=== PATIENT | male | born 1940 | race Caucasian/White ===

== ENCOUNTER 2018-01-28 08:09 | Inpatient (IN) | payer OTHER ==
[2018-01-16 10:25] VITALS: BMI 38.9
[~2018-01-28 08:09] MED LIST: CEFAZOLIN 2 GM in DEXTROSE 5%-WATER - 50 ML IVPB ONE; CELECOXIB 200 MG CAPSULE PO ONE; TRANEXAMIC ACID 1000 MG/10 ML VIAL IVPUSH ONE; VANCOMYCIN 1,000 MG in DEXTROSE 5%-WATER - 250 ML IVPB ONE; oxyCODONE HCL 10 MG SUSTAINED ACTING TABLET PO ONE
[2018-01-28] MEDS ORDERED: CELECOXIB 200 MG CAPSULE ONE (09:26)
[2018-01-28] MEDS ORDERED: DEXAMETHASONE SOD PHOSPHATE/PF 10 MG/ML SDV ONE (10:08)
[2018-01-28] MEDS ORDERED: BUPIVACAINE LIPOSOME/PF (EXPAREL) 266 MG/20 ML VIAL ONE (10:09)
[2018-01-28] MEDS ORDERED: MIDAZOLAM HCL 2 MG/2 ML SINGLE DOSE VIAL ONE (10:09)
[2018-01-28] MEDS ORDERED: ceFAZolin SODIUM 1 GM VIAL ONE ×2 (11:33→14:23)
[2018-01-28] MEDS ORDERED: VANCOMYCIN 1,000 MG VIAL (RESTRICTED TO ID ONLY) ONE (11:33)
[2018-01-28] MEDS ORDERED: TRANEXAMIC ACID 1000 MG/10 ML VIAL ONE (11:40)
--- NOTE | 2018-01-28 15:22 | OP ---
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
--- NOTE | 2018-01-28 15:25 | PN ---
Progress Note (short form) - Note Progress Note: 78M s/p revision right total knee replacement POD #0. -Pain control. -DVT PPx: -Chemical: 81mg ASA PO BID x 6 weeks. -Mechanical: DAYAMI's, SCD's. -Incentive spirometry. -PT/OT/Rehab, OOB. -TTWB RLE. -Will organize right knee Umberto brace. -f/u drain output. -f/u AM labs. -Care per medical hospitalist team. -Discharge planning. -Will follow. Barrington Ohara MD (Orthopaedic Surgery).
[2018-01-28] MEDS ORDERED: MAG HYDROX/AL HYDROX/SIMETH 30 ML UNIT-DOSE CUP PO PRN (15:26)
[2018-01-28] MEDS ORDERED: ONDANSETRON 4 MG/2 ML VIAL IVPUSH PRN (15:26)
[2018-01-28] MEDS ORDERED: MAGNESIUM HYDROX 2400MG/30ML ORAL SUSPENSION 30 ML CUP PO PRN (15:26)
[2018-01-28] MEDS ORDERED: ALBUTEROL SO4 8 GM HFA INHALER IH PRN (15:28)
[2018-01-28] MEDS ORDERED: LACTATED RINGERS SOLUTION 1,000 ML IV SCH (15:30)
--- NOTE | 2018-01-28 15:44 | SURG ---
Surgery Slubber Machine Operator Note Slubber Machine Operator: Sandra Frederick PA-C Date of Service: 01/28/18 Diagnosis: failed right total knee replacement Procedure: 1-stage revision right total knee replacement I was present for the entirety of the operative procedure. For further detail, please refer to operative report. Visit type - Case Type Case Type: Scheduled - Emergency Emergency Visit: No - New patient This patient is new to me today: Yes Date on this admission: 01/28/18
[2018-01-28] MEDS ORDERED: oxyCODONE HCL 5 MG TABLET PO PRN (15:51)
[2018-01-28] MEDS: ACETAMINOPHEN 325 MG TABLET (FP) PO SCH ×2 (16:45→21:54)
[2018-01-28] MEDS: oxyCODONE HCL 5 MG TABLET PO PRN (17:57)
--- NOTE | 2018-01-28 21:24 | OP ---
DATE OF OPERATION: 01/28/2018 SURGEON: Stew Ohara MD CHIEF CLOTH FINISHING RANGE OPERATOR: Barrington Ohara MD and TORIBIO Elliott PREOPERATIVE DIAGNOSIS: Loosening right total knee arthroplasty. POSTOPERATIVE DIAGNOSIS: Loosening right total knee arthroplasty. PROCEDURE: 1. Explant removal of total knee arthroplasty. 2. Tibial tubercle osteotomy. 3. Revision right total knee arthroplasty (Jagdish rotating hinge). 4. Lateral release. ANESTHESIA: Conscious sedation with spinal anesthesia and adductor block. ANTIBIOTICS: Kefzol 2 g and 1 g vancomycin preoperative, 1 g Kefzol at the end of the procedure. TOURNIQUET TIME: 2-1/2 hours. DESCRIPTION OF PROCEDURE: The patient was correctly identified and brought to the operating room. The right lower extremity was prepped and draped in the routine manner with Betadine scrub solution, wiped with alcohol, and DuraPrep applied. Timeout was called. Imaging was available for intraoperative evaluation. A midline incision was made into the knee. This was along the lines of the old knee incision. This was extended proximally and distally. It was impossible to gain access to this knee without anything other than a tibial tubercle osteotomy. The proximal tibial soft tissues were dissected off the medial aspect of the tibia. A tibial tubercle osteotomy was performed measuring approximately 10 cm below the proximal end of the tibial tubercle. Once this was opened laterally, the entire knee was exposed, revealing the entire contents appropriately. The tibial component was loose. This was noted after removing of the junctional bed around the entire implant. The tibial tray was delivered without any difficulty. The femoral component required a Gigli saw to be placed from proximal to distal and then small osteotomes cut the whitlock between the bone and cement and the femoral component was also delivered without any difficulty accordingly. Multiple specimens were sent to the lab for cultures and sensitivity as well as histopathology. The histopathology reports were 1 polymorph seen per high power field. No clinical or microscopic evidence of infection. We went ahead and proceeded with the revision knee arthroplasty. The femoral component was prepared with the appropriate jig systems. This was downsized to a size C, definitely smaller than what had been inserted before. The patellar button was left alone. The intramedullary canal was reamed to size 12 and a size C with 12 mm x 45 mm stem inserted onto the femoral component. The stem, after preparation of bone, it was necessary to maintain the joint line, this being achieved with 5 mm distal augments x2, one placed medially and one placed laterally. The tibia itself measured size 3. The concern was the fibula. The original tibia had sunk well below the tip of the proximal end of the fibular head. This had been resected. This resulted in loss of the lateral collateral ligament, hence the need for the rotating hinge. It was impossible to see the stems on the tibia because of the tight canal. A routine tibial tray with rotating hinge was inserted and a 17 mm polyethylene liner was inserted appropriately. A full debridement of the knee was performed, that is all soft tissue appropriately. Once the trialing had been completed and excellent range of movement achieved on the table and complete stability noted, the definitive implants were seated with 1 cementing of both the femur and tibia in one stage. All extraneous cement was removed. The wounds were thoroughly lavaged appropriately. A size 17 polyethylene tray applied and the locking pin inserted. Range of movement on the table was 0 to at least 110 degrees. Prior to the surgery, the range of movement 5 to 70 degrees. The tibial tubercle was then repositioned and the tibial fixation was with interfragmentary screws and a lag effect with 3 screws seated from the tibial tubercle into the bone bed appropriately. A lateral release was necessary in order to prevent tilting of the patella. Closure of the quadriceps tendon and parapatellar tissues with 1 Vicryl, subcutaneous 1-0 and 2-0 Vicryl, skin beth. Drainage: One-eighth inch Hemovac x1. Knee immobilizer applied. MD ANA Carpenter/[id number]
[2018-01-28] MEDS: LATANOPROST 0.005% OPHTH SOLN 2.5ML BOTTLE OU SCH (21:53)
[2018-01-28] MEDS: CARVEDILOL 12.5 MG TABLET (FP) PO SCH (21:55)
[2018-01-28] MEDS: ASPIRIN COATED 81 MG TABLET.EC PO SCH (21:55)
[2018-01-28] MEDS: oxyCODONE HCL 10 MG SUSTAINED ACTING TABLET PO SCH (21:55)
[2018-01-28] MEDS: SENNOSIDES/DOCUSATE COMBO (SENNA PLUS) TABLET (UD) PO SCH (21:57)
[2018-01-28] MEDS: BUDESONIDE/FORMETEROL FUMARATE 80/4.5 mcg INHALER IH SCH ×2 (21:57→22:05)
[2018-01-28] MEDS: CEFAZOLIN 2 GM/D5W 2 GM/50 ML ML IVPB SCH (22:12)
[2018-01-29] MEDS: oxyCODONE HCL 5 MG TABLET PO PRN ×5 (02:51→21:24)
[2018-01-29] MEDS: ACETAMINOPHEN 325 MG TABLET (FP) PO SCH ×4 (05:00→21:24)
[2018-01-29] MEDS: TORSEMIDE 20 MG TABLET (FP) PO SCH ×2 (05:21→14:36)
[2018-01-29] MEDS: CEFAZOLIN 2 GM/D5W 2 GM/50 ML ML IVPB SCH (07:15)
[2018-01-29 08:14] LABS: HEMATOCRIT 39.3 % (35.4-49); MCH 30.9 pg (25.7-33.7); MEAN CELL VOLUME 93.6 fl (80-96); MEAN PLT VOLUME 10.3 fl (7.5-11.1); PLATELET COUNT 209 K/MM3 (134-434); RDW 14.3 % (11.9-15.9); WHITE BLOOD COUNT 10.9 K/mm3 (4.0-10.8)
[2018-01-29 08:18] LABS: ANION GAP 7 (8-16); BLOOD UREA NITROGEN 41 mg/dl (7-18); CALCIUM 7.9 mg/dl (8.4-10.2); CHLORIDE 102 mmol/L (98-107); CO2 27 mmol/L (22-28); CREATININE 1.2 mg/dl (0.6-1.3); GLUCOSE,RANDOM 125 mg/dl (74-106); POTASSIUM 3.5 mmol/L (3.5-5.1); SODIUM 136 mmol/L (136-145)
--- NOTE | 2018-01-29 09:09 | CONSULT ---
Consultation: REQUESTING PROVIDER: Dr Ohara CONSULT REQUEST: We have been asked to medically evaluate this patient for medical management. HISTORY OF PRESENT ILLNESS: Patient is a 78 y/o male with a past medical history of HTN, HLD, PVD (stent right superfiscial femoral artery), PUD, CAD (s/ p 2 stents), CKD, OA, gout, spinal stenosis, and congestive heart failure. Patient was admitted to the medical surgical floor after revision of right total knee replacement, Dr Ohara, spinal anesthesia, post op day 1 REVIEW OF SYSTEMS: CONSTITUTIONAL: Absent: fever, chills, diaphoresis, generalized weakness, malaise, loss of appetite, weight change HEENT: Absent: rhinorrhea, nasal congestion, throat pain, throat swelling, difficulty swallowing, mouth swelling, ear pain, eye pain, visual changes CARDIOVASCULAR: Absent: chest pain, syncope, palpitations, irregular heart rate, lightheadedness , peripheral edema RESPIRATORY: Absent: cough, shortness of breath, dyspnea with exertion, orthopnea, wheezing, stridor, hemoptysis GASTROINTESTINAL: Absent: abdominal pain, abdominal distension, nausea, vomiting, diarrhea, constipation, melena, hematochezia GENITOURINARY: Absent: dysuria, frequency, urgency, hesitancy, hematuria, flank pain, genital pain MUSCULOSKELETAL: Present: right knee pain Absent: myalgia, arthralgia, joint swelling, back pain, neck pain SKIN: Absent: rash, itching, pallor HEMATOLOGIC/IMMUNOLOGIC: Absent: easy bleeding, easy bruising, lymphadenopathy, frequent infections ENDOCRINE: Absent: unexplained weight gain, unexplained weight loss, heat intolerance, cold intolerance NEUROLOGIC: Absent: headache, focal weakness or paresthesias, dizziness, unsteady gait, seizure, mental status changes, bladder or bowel incontinence PSYCHIATRIC: Absent: anxiety, depression, suicidal or homicidal ideation, hallucinations. PHYSICAL EXAMINATION Vital Signs - 24 hr 01/28/18 01/28/18 01/28/18 09:45 09:56 15:31 Temperature 97.8 F 97.6 F Pulse Rate 58 L 66 Respiratory 18 12 Rate Blood Pressure 149/68 159/69 O2 Sat by Pulse 97 97 Oximetry (%) 01/28/18 01/28/18 01/28/18 15:35 15:40 15:45 Temperature 97.6 F Pulse Rate 59 L 61 61 Respiratory 14 16 16 Rate Blood Pressure 162/69 167/66 167/66 O2 Sat by Pulse 98 98 98 Oximetry (%) 01/28/18 01/28/18 01/28/18 16:00 16:15 16:30 Temperature 97.6 F Pulse Rate 61 61 68 Respiratory 16 16 16 Rate Blood Pressure 171/69 159/65 160/68 O2 Sat by Pulse 98 98 98 Oximetry (%) 01/28/18 01/28/18 01/28/18 16:55 18:40 19:40 Temperature 97.6 F 97.7 F 97.5 F L Pulse Rate 62 75 75 Respiratory 17 16 18 Rate Blood Pressure 162/69 145/64 151/61 O2 Sat by Pulse 97 98 Oximetry (%) 01/28/18 01/28/18 01/29/18 20:37 22:15 06:00 Temperature 97.5 F L 98.0 F Pulse Rate 76 72 Respiratory 19 19 Rate Blood Pressure 101/61 150/60 O2 Sat by Pulse 95 99 95 Oximetry (%) GENERAL: obese, Awake, alert, and fully oriented, in no acute distress. HEAD: Normal with no signs of trauma. EYES: Pupils equal, round and reactive to light, extraocular movements intact, sclera anicteric, conjunctiva clear. No lid lag. EARS, NOSE, THROAT: Ears normal, nares patent, oropharynx clear without exudates. Moist mucous membranes. NECK: Normal range of motion, supple without lymphadenopathy, JVD, or masses. LUNGS: Breath sounds equal, clear to auscultation bilaterally, diminished to bases. No wheezes, and no crackles. No accessory muscle use. HEART: Regular rate and rhythm, normal S1 and S2 without murmur, rub or gallop. ABDOMEN: Soft, nontender, not distended, normoactive bowel sounds, no guarding, no rebound, no masses. No hepatomegaly or splenomegaly. MUSCULOSKELETAL: Normal range of motion at all joints. No bony deformities or tenderness. No CVA tenderness. UPPER EXTREMITIES: 2+ pulses, warm, well-perfused. No cyanosis. No clubbing. Cap refill <2 seconds. No peripheral edema. LOWER EXTREMITIES: 2+ pulses, warm, well-perfused. No calf tenderness. No peripheral edema. RIGHT LOWER EXTREMITY: knee immobilizer in place, hemovac drain, less than 3 second capillary refill, +2 pedal pulse NEUROLOGICAL: Cranial nerves II-XII intact. Normal speech. Normal gait. PSYCHIATRIC: Cooperative. Good eye contact. Appropriate mood and affect. SKIN: Warm, dry, normal turgor, no rashes or lesions noted. Laboratory Results - last 24 hr 01/29/18 01/29/18 07:12 07:12 WBC 10.9 H RBC 4.20 Hgb 13.0 Hct 39.3 MCV 93.6 MCH 30.9 MCHC 33.0 RDW 14.3 Plt Count 209 MPV 10.3 Sodium 136 Potassium 3.5 Chloride 102 Carbon Dioxide 27 Anion Gap 7 L BUN 41 H Creatinine 1.2 Random Glucose 125 H Calcium 7.9 L Active Medications Generic Name Dose Route Start Last Admin Trade Name Freq PRN Reason Stop Dose Admin Acetaminophen 650 mg 01/28/18 16:00 01/29/18 05:00 Tylenol - PO 01/31/18 15:59 650 mg Q6H MELONY Administration Al Hydroxide/Mg Hydroxide 30 ml 01/28/18 15:26 Mylanta Oral Suspension - PO Q4H PRN DYSPEPSIA Albuterol Sulfate 2 puff 01/28/18 15:28 Ventolin Hfa Inhaler - IH Q6H PRN WHEEZING Allopurinol 200 mg 01/29/18 10:00 Zyloprim - PO DAILY MELONY Aspirin 81 mg 01/28/18 22:00 01/28/18 21:55 Ecotrin - PO 81 mg BID MELONY Administration Budesonide/Formoterol Fumarate 2 puff 01/28/18 22:00 01/28/18 22:05 Symbicort 80/4.5mcg - IH Not Given BID MELONY Carvedilol 25 mg 01/28/18 22:00 01/28/18 21:55 Coreg - PO 25 mg BID MELONY Administration Colchicine 0.6 mg 01/29/18 10:00 Colcrys - PO DAILY MELONY Doxazosin Mesylate 4 mg 01/29/18 10:00 Cardura - PO DAILY MELONY Latanoprost 1 drop 01/28/18 22:00 01/28/18 21:53 Xalatan 0.005% Eye Drops - OU 1 drop HS MELONY Administration Magnesium Hydroxide 30 ml 01/28/18 15:26 Milk Of Magnesia - PO PRN PRN CONSTIPATION Ondansetron HCl 4 mg 01/28/18 15:26 Zofran Injection IVPUSH Q6H PRN NAUSEA Oxycodone HCl 5 mg 01/28/18 15:51 Roxicodone - PO Q3H PRN PAIN LEVEL 1-5 Oxycodone HCl 10 mg 01/28/18 15:51 01/29/18 07:52 Roxicodone - PO 10 mg Q3H PRN Administration PAIN LEVEL 6-10 Oxycodone HCl 10 mg 01/28/18 22:00 01/28/18 21:55 Oxycontin - PO 01/31/18 15:52 10 mg BID MELONY Administration Pantoprazole Sodium 40 mg 01/29/18 10:00 Protonix - PO DAILY MELONY Senna/Docusate Sodium 1 tablet 01/28/18 22:00 01/28/18 21:57 Pericolace - PO 1 tablet BID MELONY Administration Torsemide 40 mg 01/29/18 06:00 01/29/18 05:21 Demadex - PO 40 mg BIDLASIX MELONY Administration ASSESSMENT/PLAN: 1) MS right total knee replacement, revision, post op day 1 - prn pain medication - toe touch weight bearing as per orthopedist to the right lower extremity - neurovascular checks q4h - monitor hgb, strict monitoring of hemovac drain 2) cardiovascular hypertension - continue coreg and cardura, b/p at goal systolic congestive heart failure aortic insufficiency - pt appears euvolemic on exam, strict monitoring of i/o - continue torsemide CAD s/p stent x2 - continue ASA PVD - hx of right superfiscial femoral artery stent, strict neurovascular assessment q4h 3) PULM COPD - no acute excerbation at this time, continue symbicort and albuterol prn RAJI - bipap ordered at night with continous spo2 4) nephrology CKD - creatine 1.2 baseline 1.0 - avoid nephrotixc agents and nsaids 5) GI GERD - protonix Dispo: We will continue to follow the patient. Thank you for this consultative opportunity. Visit type - Emergency Visit Emergency Visit: No - New Patient This patient is new to me today: Yes Date on this admission: 01/29/18 - Critical Care Critical Care patient: No
[2018-01-29] MEDS: DOXAZOSIN MESYLATE 2 MG TABLET (FP) PO SCH (09:45)
[2018-01-29] MEDS: oxyCODONE HCL 10 MG SUSTAINED ACTING TABLET PO SCH ×2 (09:46→21:24)
[2018-01-29] MEDS: CARVEDILOL 12.5 MG TABLET (FP) PO SCH ×2 (09:46→21:24)
[2018-01-29] MEDS: ASPIRIN COATED 81 MG TABLET.EC PO SCH ×2 (09:46→21:24)
[2018-01-29] MEDS: COLCHICINE 0.6 MG TABLET (FP) PO SCH (09:46)
[2018-01-29] MEDS: SENNOSIDES/DOCUSATE COMBO (SENNA PLUS) TABLET (UD) PO SCH ×2 (09:47→22:26)
[2018-01-29] MEDS: BUDESONIDE/FORMETEROL FUMARATE 80/4.5 mcg INHALER IH SCH ×2 (09:47→21:26)
[2018-01-29] MEDS: PANTOPRAZOLE 40 MG TABLET (FP) PO SCH (09:47)
[2018-01-29] MEDS: ALLOPURINOL 100 MG TABLET (FP) PO SCH (09:48)
--- NOTE | 2018-01-29 10:24 | PN ---
Progress Note (short form) - Note Progress Note: Anesthesia post op note POD#1 S/P revision right total knee replacement, under spinal and nerve block. Pat seen and examined. VSS. Comfortable. Pain well controlled. Doing PT. No apparent post anesthesia complications. Signed off.
[2018-01-29] MEDS ORDERED: ALBUTEROL SO4 0.083% IH SOL 2.5 MG/3 ML VIAL.NEB. NEB PRN (10:45)
--- NOTE | 2018-01-29 13:47 | PN ---
Progress Note (short form) - Note Progress Note: surgery POD #1 Right total knee revision. Patient seen and examined in the chair at the bedside. Patient states his pain is controlled and he is tolerating a regular diet. He denies any CP, SOB, N/V, fever or chills. Vital Signs Temp 99.2 F 01/29/18 10:00 Pulse 69 01/29/18 10:00 Resp 19 01/29/18 10:00 BP 132/47 01/29/18 10:00 Pulse Ox 97 01/29/18 10:00 Intake & Output 01/28/18 01/29/18 01/29/18 23:59 11:59 23:59 Intake Total 1700 Output Total 200 400 Balance 1500 -400 Intake: IV 1000 Oral 700 Output: Drainage 0 100 SARAH#1 100 Urine 200 300 Void 200 300 Other: Voiding Method Urinal Urinal # Unmeasured Voids Void 0 Bowel Movement No CBC, BMP 01/29/18 07:12 01/29/18 07:12 PE: A&Ox3, NAD unlabored resp on RA Right LE dressing c/d/i with no evidence of d/c, drain in good position draining well. b/l LE compartments soft and non-tender, 5/5 dorsi/plantar flexion and +1 pedal pulses. scd and teds in place Problem List - Problems (1) Failure of total knee arthroplasty Assessment/Plan: POD #1 Right TKA revision doing well. Plan: 1) continue DVT prophylaxis with ASA, teds, scds and ambulation 2) TTWB on right LE with rolling platform walker 3) OOB with assist 4) Encourage IS 5) D/c planning for rehab when appropriate. Code(s): T84.018A - BROKEN INTERNAL JOINT PROSTHESIS, OTHER SITE, INIT ENCNTR; Z96.659 - PRESENCE OF UNSPECIFIED ARTIFICIAL KNEE JOINT
[2018-01-29] MEDS: LATANOPROST 0.005% OPHTH SOLN 2.5ML BOTTLE OU SCH (22:27)
[2018-01-30] MEDS: ACETAMINOPHEN 325 MG TABLET (FP) PO SCH ×2 (04:00→09:39)
[2018-01-30] MEDS: TORSEMIDE 20 MG TABLET (FP) PO SCH ×2 (06:25→13:45)
[2018-01-30 06:45] VITALS: PULSE 73; TEMP 98.9
[2018-01-30 08:07] LABS: HEMATOCRIT 36.4 % (35.4-49); HEMOGLOBIN 12.5 GM/dl (11.7-16.9); MCHC 34.3 g/dl (32.0-35.9); MEAN CELL VOLUME 93.2 fl (80-96); MEAN PLT VOLUME 10.5 fl (7.5-11.1); PLATELET COUNT 203 K/MM3 (134-434); RDW 14.6 % (11.9-15.9); WHITE BLOOD COUNT 11.1 K/mm3 (4.0-10.8)
[2018-01-30] MEDS: oxyCODONE HCL 5 MG TABLET PO PRN ×2 (08:33→13:45)
[2018-01-30] MEDS: ASPIRIN COATED 81 MG TABLET.EC PO SCH (09:43)
[2018-01-30] MEDS: oxyCODONE HCL 10 MG SUSTAINED ACTING TABLET PO SCH (09:43)
[2018-01-30] MEDS: ALLOPURINOL 100 MG TABLET (FP) PO SCH (09:43)
[2018-01-30] MEDS: SENNOSIDES/DOCUSATE COMBO (SENNA PLUS) TABLET (UD) PO SCH (09:43)
[2018-01-30] MEDS: DOXAZOSIN MESYLATE 2 MG TABLET (FP) PO SCH (09:44)
[2018-01-30] MEDS: COLCHICINE 0.6 MG TABLET (FP) PO SCH (09:44)
[2018-01-30] MEDS: CARVEDILOL 12.5 MG TABLET (FP) PO SCH (09:44)
[2018-01-30] MEDS: PANTOPRAZOLE 40 MG TABLET (FP) PO SCH (09:44)
[2018-01-30] MEDS: BUDESONIDE/FORMETEROL FUMARATE 80/4.5 mcg INHALER IH SCH (09:44)
--- NOTE | 2018-01-30 10:26 | DS ---
Physical Exam: SUBJECTIVE: Patient seen and examined, sitting in bedside chair,reports minimal pain to the right knee, denies any paresthesia to the right lower extremity, reports pain is 4/10 upon movement of the right lower extremity, patient denies any chest pain or shortness of breath. OBJECTIVE: Patient is a 78 y/o male with a past medical history of HTN, HLD, PVD (stent right superfiscial femoral artery), PUD, CAD (s/p 2 stents), CKD, OA , gout, spinal stenosis, and congestive heart failure. Patient was admitted to the medical surgical floor after revision of right total knee replacement, Dr Ohara, spinal anesthesia. Vital Signs Period Temp Pulse Resp BP Sys/Hatfield Pulse Ox Last 24 Hr 98.4 F-99.2 F 66-79 18-20 141-171/47-77 96-100 PHYSICAL EXAM GENERAL: The patient is awake, alert, and fully oriented, in no acute distress. HEAD: Normal with no signs of trauma. EYES: PERRL, extraocular movements intact, sclera anicteric, conjunctiva clear. ENT: Ears normal, nares patent, oropharynx clear without exudates, moist mucous membranes. NECK: Trachea midline, full range of motion, supple. LUNGS: Breath sounds equal, clear to auscultation bilaterally, no wheezes, no crackles, no accessory muscle use. HEART: Regular rate and rhythm, S1, S2 without murmur, rub or gallop. ABDOMEN: Soft, nontender, nondistended, normoactive bowel sounds, no guarding, no rebound, no hepatosplenomegaly, no masses. EXTREMITIES: 2+ pulses, warm, well-perfused, no edema. RIGHT LOWER EXTREMITY: surgical site well approximated, beth intact, no drainage noted, no erythema, no induration noted, tenderness upon palpation, hemovac drain removed intact, scant sangenous drainage noted. less than 3 second capillary refill, +3 pedal pulse. scd/cedric intact NEUROLOGICAL: Cranial nerves II through XII grossly intact. Normal speech, gait not observed. PSYCH: Normal mood, normal affect. SKIN: Warm, dry, normal turgor, no rashes or lesions noted. LABS Laboratory Results - last 24 hr 01/30/18 07:25 WBC 11.1 H RBC 3.90 L Hgb 12.5 Hct 36.4 MCV 93.2 MCH 32.0 MCHC 34.3 RDW 14.6 Plt Count 203 MPV 10.5 CMP Sodium 136 mmol/L (136-145) 01/29/18 07:12 Potassium 3.5 mmol/L (3.5-5.1) 01/29/18 07:12 Chloride 102 mmol/L (98-107) 01/29/18 07:12 Carbon Dioxide 27 mmol/L (22-28) 01/29/18 07:12 Anion Gap 7 (8-16) L 01/29/18 07:12 BUN 41 mg/dl (7-18) H 01/29/18 07:12 Creatinine 1.2 mg/dl (0.6-1.3) 01/29/18 07:12 Random Glucose 125 mg/dl (74-106) H 01/29/18 07:12 Calcium 7.9 mg/dl (8.4-10.2) L 01/29/18 07:12 HOSPITAL COURSE: 1) right total knee replacement, revision, post op day 2 - pain controlled with both narcotic and non narcotic approach - toe touch weight bearing as per orthopedist to the right lower extremity - neurovascular checks q4h - hemovac drain removed on post op day 2, intact. - hgb 12.5 stable 2) cardiovascular hypertension - continued coreg and cardura, b/p at goal systolic congestive heart failure aortic insufficiency - patient remained euvolemic on exam, strict monitoring of i/o - continued torsemide CAD s/p stent x2 - continue ASA PVD - hx of right superfiscial femoral artery stent, strict neurovascular assessment q4h 3) PULM COPD - no acute excerbation at this time, continue symbicort and albuterol prn RAJI - bipap 10/5 fio2 21%, ordered at night with continuous spo2 4) CKD - creatine 1.2 baseline 1.0 - avoid nephrotixc agents and nsaids 5) GERD - protonix PLAN - discharge to SNF for short term rehab - continue asa 81mg bid for 6 weeks - TOE TOUCH WEIGHT BEARING WITH JESUS KNEE BRACE AT ALL TIMES - strict followup with Dr Ohara within 1 week Date of Admission:01/28/18 Date of Discharge: 01/30/18 Minutes to complete discharge: 45 Discharge Summary Reason For Visit: [facility] LOOSENING OF INTERNAL RIGHT KNEE Current Active Problems Failure of total knee arthroplasty (Acute) Condition: Improved - Instructions Diet, Activity, Other Instructions: resume DASH diet continue all medications as prescribed Post-op Instructions Call the office for a follow-up appointment in 1 week Aspirin 81mg daily for 6 weeks. Apply Graduated Compression Stockings (TEDs) to both lower extremities- remove daily for hygiene ONLY Apply cold packs to affected area for 15 minutes every 2 hours. TOE TOUCH WEIGHT BEARING WITH KNEE BRACE AT ALL TIMES Patient may ambulate as tolerated-encourage self care (at least every 2-3 hours while awake) with walker or cane Maintain Aquacel (waterproof) dressing to operative wound (will be removed by surgeon at first office visit) Shower with Aquacel dressing in place-if Aquacel integrity compromised, remove and apply dry sterile dressing and notify Orthopedist. DO NOT SHOWER unless Orthopedists approves without Aquacel dressing CONTACT THE OFFICE FOR ANY CHANGE IN YOUR CONDITION (for example-fever greater than 102 degrees,excessive bleeding from operative site, purulent drainage, severe swelling or pain) GO TO THE EMERGENCY ROOM IF THERE IS A MEDICAL EMERGENCY * If you have any questions, please do not hesitate to call the office Referrals: Barrington Ohara MD [Staff Physician] - 02/05/18 Disposition: [facility] - Home Medications Comprehensive Discharge Medication List: Ambulatory Orders Allopurinol [Zyloprim -] 200 mg PO DAILY 01/16/18 Atorvastatin Ca [Lipitor] 60 mg PO HS 01/16/18 Carvedilol [Coreg -] 25 mg PO BID 01/16/18 Colchicine 0.6 mg PO DAILY 01/16/18 Doxazosin Mesylate 4 mg PO DAILY 01/16/18 Ergocalciferol (Vitamin D2) [Vitamin D2] 50,000 unit PO WEEKLY 01/16/18 Omeprazole 40 mg PO DAILY 01/16/18 Primidone [Mysoline -] 375 mg PO BID 01/16/18 Torsemide 40 mg PO BID 01/16/18 Albuterol Sulfate Inhaler - [Ventolin Hfa Inhaler -] 2 inh PO Q6H PRN 01/28/18 Ferrous Sulfate [High Potency Iron] 65 mg PO TID 01/28/18 Fluticasone/Salmeterol [Advair 250-50 Diskus] 1 each IH BID 01/28/18 Latanoprost 0.005% Eye Drops [Xalatan 0.005% Eye Drops -] 1 drop OU HS 01/28/18 This patient is new to me today: No Emergency Visit: No Critical Care patient: No - Discharge Referral Referred to [facility] Med P.C.: No
[2018-01-30 10:29] VITALS: BP 152/74
--- NOTE | 2018-02-02 10:16 | PATH ---
Surgical Pathology Report Patient Name: EDIE WALLACE Med. Rec. #: [id number] /Age/Gender: 1940 (Age: 78) / M Account: [id number] Location: [facility] MED-[facility] Taken: 01/28/2018 Received: 01/28/2018 Reported: 02/02/2018 Physicians: Stew Ohara M.D. Specimen(s) Received A: RIGHT KNEE SYNOVIUM B: RIGHT KNEE SYNOVIUM + FIBROUS TISSUE C: EXPLANTED HARDWARE RIGHT KNEE D: RIGHT KNEE BONE Clinical History Failed right total knee replacement Intraoperative Consult Diagnosis A. Right knee synovium, frozen section: Rare neutrophils (1-2), in 10 herbicide service sales representative high power jolley. B. Right knee synovium and fibrosis, frozen section: Rare neutrophils (1-2), in 10 herbicide service sales representative high power jolley. Dr[address] Palencia. Final Diagnosis A. KNEE, RIGHT, SYNOVIUM, REVISION TOTAL KNEE ARTHROPLASTY(FS): DENSE FIBROCONNECTIVE TISSUE AND SYNOVIUM WITH RARE NEUTROPHILS (1-2/HPF) AND NODULAR AGGREGATES OF CALCIFIC MATERIAL CONSISTENT WITH CHONDROCALCINOSIS. B. KNEE, RIGHT, SYNOVIUM AND FIBROUS TISSUE, REVISION TOTAL KNEE ARTHROPLASTY(FS): DENSE FIBROUS TO FIBROCONNECTIVE TISSUE AND SYNOVIUM WITH RARE NEUTROPHILS (1-2/HPF) AND NODULAR AGGREGATES OF CALCIFIC MATERIAL CONSISTENT WITH CHONDROCALCINOSIS. C. HARDWARE, KNEE, RIGHT, EXPLANTATION: SURGICAL HARDWARE. MACROSCOPIC DIAGNOSIS. D. BONE, KNEE, RIGHT, REVISION TOTAL KNEE REPLACEMENT: BONE, DENSE FIBROCONNECTIVE TISSUE, FIBROADIPOSE TISSUE AND SKELETAL MUSCLE. Electronically Signed Tiffanie German M.D. Gross Description A. Received fresh labeled "right knee synovium #1 for frozen section," are 3 portions of red and yellow merrill fibrofatty tissue measuring 7.8 x 2.7 x 0.7 cm, 3.4 x 3.0 x 1.0 cm and 2.5 x 1.7 x 1.5 cm. A frozen section is performed on herbicide service sales representative tissue. The frozen section residue is entirely submitted in one cassette. B. Received fresh labeled "right knee synovium and fibrous tissue for frozen section," are multiple fragments of bony and fibrofatty tissue having an aggregate of 7.8 x 2.8 x 1.0 cm. A frozen section is performed on herbicide service sales representative tissue. The frozen section residue is entirely submitted in one cassette. C. Received fresh labeled "explanted hardware right knee," are 3 portions of white plastic and lane metallic hardware, consistent with hardware from the knee. The specimens range from 6.0-7.0 cm in greatest dimension. No soft tissue is present. No sections are submitted, gross only. D. Received in formalin labeled "right knee bone," is an 8.0 x 7.5 x 1.5 cm aggregate of bone and soft tissue fragments with attached cement material. Belt Loop Machine Operator sections are submitted in one cassette, following decalcification. 01/29/2018 [facility]01/29/2018
== END 2018-01-30 15:50 | DRG 467 ==
LOC: FM/S 08:09
PROVIDERS: ADMIT Orthopaedic Surgery Orthopaedic Surgery of the Spine; ATTEND Orthopaedic Surgery Orthopaedic Surgery of the Spine
PROC: 0JDL0ZZ Extraction of Right Upper Leg Subcutaneous Tissue and Fascia, Open Approach (ICD-10-PCS; 2018-01-28)
PROC: 0SPC0JZ Removal of Synthetic Substitute from Right Knee Joint, Open Approach (ICD-10-PCS; 2018-01-28)
PROC: 0SRC069 Replacement of Right Knee Joint with Oxidized Zirconium on Polyethylene Synthetic Substitute, Cemented, Open Approach (ICD-10-PCS; 2018-01-28)
PROC: 0Q8G0ZZ Division of Right Tibia, Open Approach (ICD-10-PCS; 2018-01-28)
PROC: 0SWC0JZ Revision of Synthetic Substitute in Right Knee Joint, Open Approach (ICD-10-PCS; principal; 2018-01-28 12:05)
DX: T84.012A Broken internal right knee prosthesis, initial encounter (principal); I13.0 Hypertensive heart and chronic kidney disease with heart failure and stage 1 through stage 4 chronic kidney disease, or unspecified chronic kidney disease; I50.32 Chronic diastolic (congestive) heart failure; Y83.8 Other surgical procedures as the cause of abnormal reaction of the patient, or of later complication, without mention of misadventure at the time of the procedure; I25.10 Atherosclerotic heart disease of native coronary artery without angina pectoris; N18.9 Chronic kidney disease, unspecified; J44.9 Chronic obstructive pulmonary disease, unspecified; G47.33 Obstructive sleep apnea (adult) (pediatric); I73.9 Peripheral vascular disease, unspecified; M10.9 Gout, unspecified; M48.00 Spinal stenosis, site unspecified; E78.5 Hyperlipidemia, unspecified; Z87.11 Personal history of peptic ulcer disease; Z95.5 Presence of coronary angioplasty implant and graft; M19.90 Unspecified osteoarthritis, unspecified site
CPT/HCPCS: 36415; 73560-TC-RT-FY; 80048; 85027; 88300-TC; 88304-TC; 88311-TC; 88331-TC; 94010; 94760; 97116-GP; 97162-GP